=== PATIENT | female | born 1995 | race Caucasian/White ===

== ENCOUNTER 2017-04-10 19:51 | Emergency (ER) | payer SELFPAY ==
[2017-04-10 20:29] VITALS: BP 125/70
--- NOTE | 2017-04-10 20:56 | UC ---
Throat Pain/Nasal Malvin HPI - HPI Summary HPI Summary: 21 year old female presents with complains of fever, ear pain, chills and sore throat. - History of Current Complaint Chief Complaint: UCRespiratory Stated Complaint: FEVER Time Seen by Provider: 04/10/17 20:32 Hx Obtained From: Patient Hx Last Menstrual Period: 1 WEEK AGO Onset/Duration: Sudden Onset Severity: Moderate Pain Scale Used: 0-10 Numeric - 8 Cough: Nonproductive Associated Signs & Symptoms: Positive: Dysphagia - Allergies/Home Medications Allergies/Adverse Reactions: Allergies Allergy/AdvReac Type Severity Reaction Status Date / Time Tomato Allergy Severe Anaphylatic Verified 04/10/17 20:29 Shock Home Medications: Home Medications Dextromethorphan-Phenylephrine [Vicks Dayquil Cold & Flu] 1 cap PO PRN 04/10/17 [History] Konmaaylkajgb-Tnhcogijta-Fejwb [Nyquil Severe Cold/Flu 5-6.25-10-325 mg/15Ml] 1 liq PO PRN 04/10/17 [History] guaiFENesin ER TAB [Mucinex*] 600 mg PO BID PRN 04/10/17 [History Confirmed ] PMH/Surg Hx/FS Hx/Imm Hx Previously Healthy: Yes - Surgical History Surgical History: Yes Surgery Procedure, Year, and Place: SURGERY AN INFANT FOR CLUB FOOT - Family History Known Family History: Positive: None - Social History Alcohol Use: None Substance Use Type: None Smoking Status (MU): Never Smoked Tobacco Review of Systems Constitutional: Negative Skin: Negative Eyes: Negative ENT: Sore Throat, Ear Ache, Nasal Discharge, Sinus Congestion, Sinus Pain/ Tenderness Respiratory: Negative Cardiovascular: Negative Gastrointestinal: Negative Genitourinary: Negative Motor: Negative Neurovascular: Negative Musculoskeletal: Negative Neurological: Negative Psychological: Negative All Other Systems Reviewed And Are Negative: Yes Physical Exam Triage Information Reviewed: Yes Vital Signs: Initial Vital Signs Temp 39.2 C 04/10/17 20:26 Pulse 125 04/10/17 20:26 Resp 16 04/10/17 20:26 BP 125/70 04/10/17 20:26 Pulse Ox 98 04/10/17 20:26 Vital Signs Reviewed: Yes Eye Exam: Normal ENT Exam: Normal ENT: Positive: Pharyngeal erythema, Nasal congestion, Nasal drainage, Tonsillar swelling, Tonsillar exudate, Sinus tenderness Dental Exam: Normal Neck exam: Normal Neck: Positive: 1 Respiratory Exam: Normal Cardiovascular Exam: Normal Abdominal Exam: Normal Musculoskeletal Exam: Normal Neurological Exam: Normal Psychological Exam: Normal Skin Exam: Normal Throat Pain/Nasal Course/Dx - Differential Dx/Diagnosis Provider Diagnoses: pharyngitis. fever. chills. ear pain Discharge - Discharge Plan Condition: Stable Disposition: HOME Prescriptions: Amoxicillin/Clavulanate TAB* [Augmentin TAB 875*] 875 mg PO BID #20 tab Magic M W2 Arun/Maal/Nyst/Lido* 5 ml SWISH SPIT QID PRN #120 ml PRN Reason: Pain Methylprednisolone [Medrol Dosepak 4 MG*] 4 mg PO .SEE CELI INSTRUCTION #21 tab Patient Education Materials: Tonsillitis (ED) Referrals: No Primary Care Phys,NOPCP [Primary Care Provider] -
[2017-04-10] MEDS ORDERED: predniSONE TAB* 20 MG PO ONE (21:22)
[2017-04-10] MEDS ORDERED: Amoxicillin/Clavulanate TAB* 875 MG PO ONE (21:22)
[2017-04-10] MEDS ORDERED: Lidocaine 2% VISCOUS* 15 ML UDC SWISH SPIT ONE (21:23)
[2017-04-10] MEDS ORDERED: Al Hydrox/Mg Hydrox/Simet LIQ* 30 ML UDC PO ONE (21:23)
[2017-04-10] MEDS ORDERED: Neomyc/Polym/HC 1% OTIC SUSP* **OTIC BOTH EARS ONE (21:29)
== END 2017-04-10 22:05 | disposition home or self-care (01) ==
LOC: UCEAST 19:51
DX: J02.9 Acute pharyngitis, unspecified (principal); H92.09 Otalgia, unspecified ear; Z91.018 Allergy to other foods
CPT/HCPCS: 87070; 87502; 87651; 99213; A9270-GY; G0463; J7512

== ENCOUNTER 2018-11-12 15:01 | Emergency (ER) | payer BC ==
[2018-11-12 15:22] VITALS: BP 100/70
--- NOTE | 2018-11-12 16:49 | UC ---
Abdominal Pain Female HPI - HPI Summary HPI Summary: ONSET OF LEFT UPPER QUADRANT/LEFT SIDE PAIN ABOUT 2 WEEKS AGO. NO DISCRETE INJURY/TRAUMA. PAIN HAS WORSENED OVER THE PAST COUPLE OF DAYS. SHE IS NOW NAUSEATED WITH SOME OCCASIONAL LIGHTHEADEDNESS. PAIN IS SHARP/STABBING. APPETITE IS DECREASED. NO CHANGE IN BOWEL HABITS. NO CONSTIPATION/DIARRHEA. - History of Current Complaint Chief Complaint: UCAbdominalPain Stated Complaint: LT SIDE PAIN/BACK Time Seen by Provider: 11/12/18 15:24 Hx Obtained From: Patient, Family/Plant And Maintenance Technician - Hx Last Menstrual Period: 3 weeks ago Onset/Duration: Gradual Onset, Lasting Weeks, Still Present Timing: Constant Severity Initially: Moderate Severity Currently: Moderate Pain Intensity: 7 Pain Scale Used: 0-10 Numeric Location: Discrete At: LUQ Radiates: No Character: Sharp Aggravating Factor(s): Nothing Alleviating Factor(s): Nothing Associated Signs and Symptoms: Positive: Nausea Allergies/Adverse Reactions: Allergies Allergy/AdvReac Type Severity Reaction Status Date / Time tomato Allergy Severe anaphylaxis Verified 11/12/18 15:23 Home Medications: Home Medications NK [No Home Medications Reported] 11/12/18 [History Confirmed 11/12/18] PMH/Surg Hx/FS Hx/Imm Hx Previously Healthy: Yes - Surgical History Surgical History: Yes Surgery Procedure, Year, and Place: SURGERY AN INFANT FOR CLUB FOOT - Family History Known Family History: Positive: None - Social History Alcohol Use: None Substance Use Type: None Smoking Status (MU): Never Smoked Tobacco Review of Systems All Other Systems Reviewed And Are Negative: Yes Constitutional: Positive: Negative Skin: Positive: Negative Respiratory: Positive: Negative Cardiovascular: Positive: Negative Gastrointestinal: Positive: Abdominal Pain, Nausea Genitourinary: Positive: Negative Physical Exam Triage Information Reviewed: Yes Appearance: Well-Nourished, Pain Distress - MODERATE DISCOMFORT. PT SITTING HOLDING HER SIDE Vital Signs: Initial Vital Signs Temp 101 F 11/12/18 15:12 Pulse 91 11/12/18 15:12 Resp 17 11/12/18 15:12 BP 100/70 11/12/18 15:12 Pulse Ox 100 11/12/18 15:12 Vital Signs Reviewed: Yes Eyes: Positive: Conjunctiva Clear ENT: Positive: Hearing grossly normal Neck: Positive: Supple, Nontender, No Lymphadenopathy Respiratory: Positive: No respiratory distress, No accessory muscle use Cardiovascular: Positive: RRR, Pulses Normal Abdomen Description: Positive: Soft, Other: - DIFFUSELY TENDER. WORST LUQ. Negative: CVA Tenderness (R), CVA Tenderness (L), Distended, Guarding Bowel Sounds: Positive: Present Musculoskeletal: Positive: No Edema Neurological: Positive: Alert Psychological: Positive: Age Appropriate Behavior Skin: Negative: Rashes Diagnostics - Laboratory Lab Results: URINE DIP 1.005, 1+ LEUKS. URINE HCG NEG Abd Pain Female Course/Dx - Course Course Of Treatment: PT REQUIRES HIGHER LEVEL OF CARE THAN WHAT IS AVAILABLE IN THE URGENT CARE. TO [facility] BY PRIVATE CAR. PT OFFERED TRANSPORT TO THE ER BY AMBULANCE BUT DECLINES. ADVISED THAT BY NOT TRAVELING IN A MONITORED SETTING SHE COULD BE RISKING WORSENING OF HER CONDITION THAT COULD POSE A THREAT TO HER LIFE, HEALTH AND MEDICAL SAFETY. SHE VERBALIZES UNDERSTANDING AND CONTINUES TO DECLINE AMBULANCE TRANSFER. - Differential Dx/Diagnosis Provider Diagnosis: LUQ abdominal pain Discharge - Sign-Out/Discharge Documenting (check all that apply): Patient Departure All imaging exams completed and their final reports reviewed: No Studies - Discharge Plan Condition: Stable Disposition: TRANS HIGHER [facility] FAC Patient Education Materials: Abdominal Pain (ED) Referrals: Emilia Lemus MD [Primary Care Provider] - If Needed Additional Instructions: GO DIRECTLY TO THE [facility] ER FROM HERE FOR FURTHER EVALUATION. YOU HAVE DECLINED TRANSFER TO THE ER BY AMBULANCE. BE ADVISED THAT BY NOT TRAVELING IN A MONITORED SETTING YOU COULD BE RISKING WORSENING OF YOUR CONDITION THAT COULD POSE A THREAT TO YOUR LIFE, HEALTH AND MEDICAL SAFETY. - Billing Disposition and Condition Condition: STABLE Disposition: Trans Higher Lvl of Care Fac
== END 2018-11-12 16:44 | disposition short-term general hospital (02) ==
LOC: UCEAST 15:01
DX: R10.12 Left upper quadrant pain (principal)
CPT/HCPCS: 81002; 81025; 87086; 99202; G0463

== ENCOUNTER 2018-11-12 17:03 | Emergency (ER) | payer BC ==
[2018-11-12 17:23] LABS: ABS Basophils 0.1 10^3/ul (0-0.2); ABS Eosinophils 0.3 10^3/ul (0-0.6); ABS Monocytes 0.7 10^3/ul (0-0.8); ABS Neutrophils 4.6 10^3/ul (1.5-7.7); Eosinophil % 3.6 %; Hematocrit 43 % (35-47); Hemoglobin 14.6 g/dL (12.0-16.0); Lymphocyte % 26.1 %; Mean Corpuscular HGB Conc 34 g/dL (31-36); Mean Corpuscular Hemoglobin 30 pg (27-31); Mean Corpuscular Volume 89 fL (80-97); Mean Platelet Volume 7.7 fL (7.4-10.4); Platelet Count 239 10^3/uL (150-450); Red Blood Count 4.81 10^6 /uL (3.70-4.87); Red Cell Distribution Width 13 % (10-15); White Blood Count 7.6 10^3/uL (3.5-10.8)
[2018-11-12 17:41] LABS: ALT 11 U/L (7-52); AST 12 U/L (13-39); Albumin 4.6 g/dL (3.2-5.2); Albumin/Globulin Ratio 1.5 (1-3); Alkaline Phosphatase 50 U/L (34-104); Anion Gap 8 mmol/L (2-11); BUN/Creatinine Ratio 15.7 (8-20); Blood Urea Nitrogen 13 mg/dL (6-24); C Reactive Protein 1.02 mg/L (<8.01); CO2 Carbon Dioxide 25 mmol/L (22-32); Calcium 9.5 mg/dL (8.6-10.3); Chloride 105 mmol/L (101-111); EGFR African American 102.2 (>60); EGFR Non-African American 84.5 (>60); Glucose 93 mg/dL (70-100); Sodium 138 mmol/L (135-145); Total Protein 7.6 g/dL (6.4-8.9)
[2018-11-12 17:48] LABS: HCG Pregnancy < 0.60 mIU/mL
[2018-11-12] MEDS ORDERED: Pantoprazole IV* 40 MG IV ONE (18:40)
[2018-11-12] MEDS ORDERED: Ondansetron INJ* 2 MG/ML VIAL IV ONE (18:41)
[2018-11-12] MEDS ORDERED: Ketorolac INJ* 30 MG/ML 1 ML VIAL IV PUSH ONE (20:00)
--- NOTE | 2018-11-12 20:35 | ED ---
GI/ HPI - HPI Summary HPI Summary: 23 year old female presents with left upper quadrant pain flank pain for the past 2 weeks. She admtis to occasional nausea. No vomiting. Denies any urinary symptoms. denies any hematuria. no diarrhea or constipation. Food does not change the pain. He states nothing makes the pain better or worse. Pain is constant. Never had before. No previous surgeries. No medical conditions. No sore throat. Admits occasional shortness of breath but no chest pain. Does have family history of blood clots. - History of Current Complaint Chief Complaint: EDAbdPain Time Seen by Provider: 11/12/18 18:34 Stated Complaint: ABD PAIN PER PT Hx Last Menstrual Period: 3 weeks ago Pain Intensity: 8 - Allergy/Home Medications Allergies/Adverse Reactions: Allergies Allergy/AdvReac Type Severity Reaction Status Date / Time tomato Allergy Severe anaphylaxis Verified 11/12/18 15:23 PMH/Surg Hx/FS Hx/Imm Hx Endocrine/Hematology History: Denies: Hx Anticoagulant Therapy Cardiovascular History: Denies: Hx Myocardial Infarction - Surgical History Surgery Procedure, Year, and Place: SURGERY AN FOR CLUB FOOT Infectious Disease History: No Infectious Disease History: Denies: Traveled Outside the [place] in Last 30 Days - Family History Known Family History: Positive: None - Social History Alcohol Use: None Substance Use Type: Reports: None Smoking Status (MU): Never Smoked Tobacco Review of Systems Negative: Fever Negative: Chest Pain Negative: Shortness Of Breath Positive: Abdominal Pain, Nausea. Negative: Vomiting, Diarrhea All Other Systems Reviewed And Are Negative: Yes Physical Exam Triage Information Reviewed: Yes Vital Signs On Initial Exam: Initial Vitals Temp Pulse Resp BP Pulse Ox 99.5 F 86 12 127/79 94 11/12/18 17:03 11/12/18 17:03 11/12/18 17:03 11/12/18 17:03 11/12/18 17:03 Vital Signs Reviewed: Yes Appearance: Positive: Well-Appearing Skin: Positive: Warm, Dry Head/Face: Positive: Normal Head/Face Inspection Eyes: Positive: Normal, Conjunctiva Clear ENT: Positive: Pharynx normal Respiratory/Lung Sounds: Positive: Clear to Auscultation, Breath Sounds Present Cardiovascular: Positive: Normal, RRR Abdomen Description: Positive: Soft, CVA Tenderness (L), Other: - tenderness in LUQ Bowel Sounds: Positive: Present Musculoskeletal: Positive: Normal Neurological: Positive: Normal Psychiatric: Positive: Normal Diagnostics - Vital Signs Vital Signs Temp Pulse Resp BP Pulse Ox 11/12/18 18:44 81 102/65 100 11/12/18 18:16 73 99 11/12/18 18:15 108/72 11/12/18 17:03 99.5 F 86 12 127/79 94 - Laboratory Lab Results: Lab Results 11/12/18 11/12/18 11/12/18 Range/Units 17:17 17:17 17:17 WBC 7.6 (3.5-10.8) 10^3/uL RBC 4.81 (3.70-4.87) 10^6 /uL Hgb 14.6 (12.0-16.0) g/dL Hct 43 (35-47) % MCV 89 (80-97) fL MCH 30 (27-31) pg MCHC 34 (31-36) g/dL RDW 13 (10-15) % Plt Count 239 (150-450) 10^3/uL MPV 7.7 (7.4-10.4) fL Neut % (Auto) 60.2 % Lymph % (Auto) 26.1 % Bergen % (Auto) 8.9 % Eos % (Auto) 3.6 % Baso % (Auto) 1.2 % Absolute Neuts (auto) 4.6 (1.5-7.7) 10^3/ul Absolute Lymphs (auto) 2.0 (1.0-4.8) 10^3/ul Absolute Monos (auto) 0.7 (0-0.8) 10^3/ul Absolute Eos (auto) 0.3 (0-0.6) 10^3/ul Absolute Basos (auto) 0.1 (0-0.2) 10^3/ul Absolute Nucleated RBC 0.0 10^3/ul Nucleated RBC % 0.0 D-Dimer, Quantitative (Less Than 230) ng/mL Sodium 138 (135-145) mmol/L Potassium 4.0 (3.5-5.0) mmol/L Chloride 105 (101-111) mmol/L Carbon Dioxide 25 (22-32) mmol/L Anion Gap 8 (2-11) mmol/L BUN 13 (6-24) mg/dL Creatinine 0.83 (0.51-0.95) mg/dL Est GFR ( Amer) 102.2 (>60) Est GFR (Non-Af Amer) 84.5 (>60) BUN/Creatinine Ratio 15.7 (8-20) Glucose 93 (70-100) mg/dL Lactic Acid 0.9 (0.5-2.0) mmol/L Calcium 9.5 (8.6-10.3) mg/dL Total Bilirubin 0.70 (0.2-1.0) mg/dL AST 12 L (13-39) U/L ALT 11 (7-52) U/L Alkaline Phosphatase 50 (34-104) U/L C-Reactive Protein 1.02 (<8.01) mg/L Total Protein 7.6 (6.4-8.9) g/dL Albumin 4.6 (3.2-5.2) g/dL Globulin 3.0 (2-4) g/dL Albumin/Globulin Ratio 1.5 (1-3) Lipase 31 (11.0-82.0) U/L Beta HCG, Quant < 0.60 mIU/mL Monoscreen Negative (Negative) 11/12/18 Range/Units 19:01 WBC (3.5-10.8) 10^3/uL RBC (3.70-4.87) 10^6 /uL Hgb (12.0-16.0) g/dL Hct (35-47) % MCV (80-97) fL MCH (27-31) pg MCHC (31-36) g/dL RDW (10-15) % Plt Count (150-450) 10^3/uL MPV (7.4-10.4) fL Neut % (Auto) % Lymph % (Auto) % Bergen % (Auto) % Eos % (Auto) % Baso % (Auto) % Absolute Neuts (auto) (1.5-7.7) 10^3/ul Absolute Lymphs (auto) (1.0-4.8) 10^3/ul Absolute Monos (auto) (0-0.8) 10^3/ul Absolute Eos (auto) (0-0.6) 10^3/ul Absolute Basos (auto) (0-0.2) 10^3/ul Absolute Nucleated RBC 10^3/ul Nucleated RBC % D-Dimer, Quantitative < 200 (Less Than 230) ng/mL Sodium (135-145) mmol/L Potassium (3.5-5.0) mmol/L Chloride (101-111) mmol/L Carbon Dioxide (22-32) mmol/L Anion Gap (2-11) mmol/L BUN (6-24) mg/dL Creatinine (0.51-0.95) mg/dL Est GFR ( Amer) (>60) Est GFR (Non-Af Amer) (>60) BUN/Creatinine Ratio (8-20) Glucose (70-100) mg/dL Lactic Acid (0.5-2.0) mmol/L Calcium (8.6-10.3) mg/dL Total Bilirubin (0.2-1.0) mg/dL AST (13-39) U/L ALT (7-52) U/L Alkaline Phosphatase (34-104) U/L C-Reactive Protein (<8.01) mg/L Total Protein (6.4-8.9) g/dL Albumin (3.2-5.2) g/dL Globulin (2-4) g/dL Albumin/Globulin Ratio (1-3) Lipase (11.0-82.0) U/L Beta HCG, Quant mIU/mL Monoscreen (Negative) Result Diagrams: 11/12/18 17:17 11/12/18 17:17 Lab Statement: Any lab studies that have been ordered have been reviewed, and results considered in the medical decision making process. - CT abd CT Interpretation Completed By: Radiologist Summary of CT Findings: IMPRESSION: 1. There may be a 4 mm calculus in the terminal left ureter without obstructive. uropathy. 2. There is trace free fluid in the posterior pelvic cul-de-sac, cannot exclude. ovarian cyst rupture. Re-Evaluation - Re-Evaluation First Eval Comment: pain is the same Second Eval Re-Evaluation Time: 23:20 Change: Improved Comment: feeling better GIGU Course/Dx - Course Course Of Treatment: 23 year old female presents with left upper quadrant pain flank pain for the past 2 weeks. She admtis to occasional nausea. No vomiting. Denies any urinary symptoms. denies any hematuria. no diarrhea or constipation. Food does not change the pain. He states nothing makes the pain better or worse. Pain is constant. Never had before. No previous surgeries. No medical conditions. No sore throat. Admits occasional shortness of breath but no chest pain. Does have family history of blood clots. On exam tenderness in left upper quadrant and left flank. wbc normal. CRP normal. D- dimer negative. CT shows a 4 mm ureteral stone. Gave patient Toradol and morphine with some improvement. Will place patient on Flomax and pain medication (tramadol as percocet makes patient feel weird). Told to follow with urology. Patient understands agrees with plan. - Diagnoses Differential Diagnoses - Female: Gastritis, Urinary Tract Infection, Ureteral Calculi Provider Diagnoses: Ureteral stone Discharge - Sign-Out/Discharge Documenting (check all that apply): Patient Departure Patient Received Moderate/Deep Sedation with Procedure: No - Discharge Plan Condition: Good Disposition: HOME Prescriptions: Amoxicillin PO (*) [Amoxicillin 500 MG CAP*] 500 mg PO Q12H #9 cap Ondansetron TAB* [Zofran 4 MG Tab*] 4 mg PO Q6H PRN #12 tab PRN Reason: Nausea Tamsulosin CAP* [Flomax CAP*] 0.4 mg PO DAILY #10 cap traMADol TAB* [Ultram*] 50 mg PO Q6HR PRN #16 tab MDD 4 PRN Reason: Pain - Severe Patient Education Materials: Ureteral Stones (ED) Referrals: Emilia Lemus MD [Primary Care Provider] - Vince Mast MD [Medical Doctor] - Additional Instructions: Take ibuprofen every 6 hours and percocet as needed every 6 hours Take Zofran every 6 hours for nausea as needed Take Flomax daily starting tomorrow, first dose given in ED until stone expelled , make sure stand up slowly Follow up with urology, call office tomorrow for appointment Strain urine until collect stone Return to ED if unable to manage pain at home, develop fever, or any new or worsening symptoms - Billing Disposition and Condition Condition: GOOD Disposition: Home
[2018-11-12] MEDS ORDERED: NS 0.9% 1000 ML** 1,000 ML IV ONE (21:27)
[2018-11-12] MEDS ORDERED: Tamsulosin CAP* 0.4 MG PO ONE (21:27)
[2018-11-12] MEDS ORDERED: Morphine 4 MG/ML VIAL (1 ml) 4 MG/ML VIAL IV ONE (21:27)
[2018-11-12 22:13] LABS: Urine Appearance Cloudy; Urine Bacteria Absent (Absent); Urine Bilirubin Negative (Negative); Urine Blood Negative (Negative); Urine Color Yellow; Urine Glucose Negative (Negative); Urine Ketones 1+ (Negative); Urine Nitrite Negative (Negative); Urine Protein Negative (Negative); Urine Red Blood Cell Trace(0-2/hpf) (Absent); Urine Specific Gravity 1.018 (1.010-1.030); Urine Squamous Epithelial Cell Present (Absent); Urine Urobilinogen Negative (Negative); Urine White Blood Cell 2+(11-20/hpf) (Absent)
[2018-11-12] MEDS ORDERED: Amoxicillin PO (*) 250 MG CAP PO ONE (23:10)
[2018-11-13 00:56] VITALS: BP 108/70
== END 2018-11-13 00:54 | disposition home or self-care (01) ==
LOC: ED 17:03
DX: N20.1 Calculus of ureter (principal)
CPT/HCPCS: 36415; 74176; 80053; 81003; 81015; 83605; 83690; 84702; 85025; 85379; 86140; 86308; 96361; 96374; 96375; 99283; A9270-GY; J1885; J2270; J2405

== ENCOUNTER 2018-11-13 18:37 | Emergency (ER) | payer BC ==
[2018-11-13] MEDS ORDERED: diPHENhydraMINE IV* 50 MG/ML 1 ml VIAL (BENADRYL) IV ONE (19:22)
[2018-11-13] MEDS ORDERED: NS 0.9% 1000 ML** 1,000 ML IV ONE (19:23)
[2018-11-13] MEDS ORDERED: diPHENhydraMINE PO* 50 MG PO ONE (19:39)
[2018-11-13 19:42] LABS: ABS Basophils 0.1 10^3/ul (0-0.2); ABS Eosinophils 0.3 10^3/ul (0-0.6); ABS Lymphocytes 1.5 10^3/ul (1.0-4.8); ABS Monocytes 0.7 10^3/ul (0-0.8); ABS Neutrophils 5.2 10^3/ul (1.5-7.7); Eosinophil % 3.4 %; Hematocrit 39 % (35-47); Hemoglobin 13.3 g/dL (12.0-16.0); Lymphocyte % 19.3 %; Mean Corpuscular HGB Conc 34 g/dL (31-36); Mean Corpuscular Hemoglobin 30 pg (27-31); Mean Corpuscular Volume 88 fL (80-97); Mean Platelet Volume 7.7 fL (7.4-10.4); Nucleated Red Blood Cells % 0.1; Platelet Count 212 10^3/uL (150-450); Red Blood Count 4.42 10^6 /uL (3.70-4.87); Red Cell Distribution Width 13 % (10-15); White Blood Count 7.8 10^3/uL (3.5-10.8)
--- NOTE | 2018-11-13 19:44 | ED ---
Lower Extremity - HPI Summary HPI Summary: Pt is a 23 y/o F presenting to the ED with a chief complaint of lower extremity issues. She states she was here on 11/12 where she was dxed with a L-sided kidney stone, and she was given Flomax to take at home. She took the Flomax, but she has since experienced shaking in her bilateral lower legs. She also reports nausea, lightheadedness, and slight chest pain. The pain from the kidney stone is still present on her L flank. She was also given Reglan which she did not take. - History of Current Complaint Chief Complaint: EDGeneral Stated Complaint: CHEST AND ABD PAIN PER EMS Time Seen by Provider: 11/13/18 19:01 Hx Obtained From: Patient Hx Last Menstrual Period: 3 weeks ago Mechanism Of Injury: Unknown Onset of Pain: Hours Onset/Duration: Hours Severity Initially: Moderate Severity Currently: Severe Pain Intensity: 9 Pain Scale Used: 0-10 Numeric Timing: Constant, Lasting Hours Location: Is Diffuse Associated Signs And Symptoms: Positive: Abdominal Pain - L side flank from kidney stone, Other - nausea, chest pain, lightheadedness Aggravating Factor(s): Nothing Alleviating Factor(s): Nothing Able to Bear Weight: Yes - Allergies/Home Medications Allergies/Adverse Reactions: Allergies Allergy/AdvReac Type Severity Reaction Status Date / Time tomato Allergy Severe anaphylaxis Verified 11/12/18 15:23 PMH/Surg Hx/FS Hx/Imm Hx Previously Healthy: Yes Endocrine/Hematology History: Denies: Hx Anticoagulant Therapy Cardiovascular History: Denies: Hx Myocardial Infarction - Surgical History Surgery Procedure, Year, and Place: SURGERY AN FOR CLUB FOOT Infectious Disease History: No Infectious Disease History: Denies: Traveled Outside the [place] in Last 30 Days - Family History Known Family History: Negative: Hypertension, Diabetes - Social History Alcohol Use: None Hx Substance Use: No Substance Use Type: Reports: None Hx Tobacco Use: No Smoking Status (MU): Never Smoked Tobacco Review of Systems Positive: Chest Pain Positive: Abdominal Pain - L sided flank from kidney stone, Nausea Positive: Other - bilat LE shaking Neurological: Other - lightheadedness All Other Systems Reviewed And Are Negative: Yes Physical Exam - Summary Physical Exam Summary: Constitutional: Well-developed, Well-nourished, Alert. (-) Distressed Skin: Warm, Dry HENT: Normocephalic; Atraumatic Eyes: Conjunctiva normal Neck: Musculoskeletal ROM normal neck. (-) JVD, (-) Stridor, (-) Tracheal deviation Cardio: Rhythm regular, rate normal, Heart sounds normal; Intact distal pulses; The pedal pulses are 2+ and symmetric. Radial pulses are 2+ and symmetric. (-) Murmur Pulmonary/Chest wall: Effort normal. (-) Respiratory distress, (-) Wheezes, (-) Rales Abd: Soft, (-) tenderness, (-) Distension, (-) Guarding, (-) Rebound Musculoskeletal: (-) Edema, bilateral LE twitching Lymph: (-) Cervical adenopathy Neuro: Alert, Oriented x3 Psych: Mood and affect anxious Triage Information Reviewed: Yes Vital Signs On Initial Exam: Initial Vitals Temp Pulse Resp BP Pulse Ox 100.9 F 109 22 115/73 94 11/13/18 18:45 11/13/18 18:45 11/13/18 18:45 11/13/18 18:45 11/13/18 18:45 Vital Signs Reviewed: Yes Diagnostics - Vital Signs Vital Signs Temp Pulse Resp BP Pulse Ox 11/13/18 18:45 100.9 F 109 22 115/73 94 - Laboratory Result Diagrams: 11/13/18 19:35 11/13/18 19:35 Lab Statement: Any lab studies that have been ordered have been reviewed, and results considered in the medical decision making process. - EKG 1907 Cardiac Rate: Tachycardia - 104bpm EKG Rhythm: Sinus Tachycardia ST Segment: Normal Ectopy: None Summary of EKG Findings: EKG at 190 shows sinus tachycardia at 104bpm with normal CO, normal QRS, normal QTc, R axis deviation, normal ST, normal T-waves, non-specific EKG. Lower Extremity Course/Dx - Course Course Of Treatment: Pt is a 23 y/o F presenting to the ED with a chief complaint of lower extremity issues. She was here on 11/12 where she was dxed with a L-sided kidney stone and given Flomax to take at home. She took the Flomax, and has since experienced shaking in her bilateral lower legs. She also reports nausea, lightheadedness, and slight chest pain, as well as the L-sided flank pain from her kidney stone. On exam, the pt is anxious and her bilateral LE are twitching. Her PE is otherwise nml. EKG at 1907 shows sinus tachycardia at 104bpm with normal CO, normal QRS, normal QTc, R axis deviation, normal ST, normal T-waves, non-specific EKG. Pt's lab results are WNL. In the ED course, she was given Benadryl PO for her shaking, as well as fluids to hydrate her. The pt reports feeling better, and as of 2105, she went to the bathroom and is stable. She will be d/c'ed with dx of medication side effect and instructions to f/u with her PCP. She is stable and agreeable with this plan. - Diagnoses Provider Diagnoses: Medication side effect Discharge - Sign-Out/Discharge Documenting (check all that apply): Patient Departure Patient Received Moderate/Deep Sedation with Procedure: No - Discharge Plan Condition: Stable Disposition: HOME Patient Education Materials: Extrapyramidal Symptoms (ED) Print Language: MONGOLIAN Referrals: Emilia Lemus MD [Primary Care Provider] - Additional Instructions: Take Benadryl every 6 hours as needed. - Billing Disposition and Condition Condition: STABLE Disposition: Home - Attestation Statements Document Initiated by Scribe: Yes Documenting Scribe: Judi Cates Provider For Whom Blairibrivera is Documenting (Include Credential): Radha Morgan MD. Scribe Attestation: Judi Fisher, dulce mariaed for Radha Gomes MD. on 11/15/18 at 0607. Scribe Documentation Reviewed: Yes Provider Attestation: The documentation as recorded by the scribeJudi accurately reflects the service I personally performed and the decisions made by me, Radha Gomes MD. Status of Scribe Document: Viewed
[2018-11-13 20:00] LABS: Albumin 4.2 g/dL (3.2-5.2); Albumin/Globulin Ratio 1.6 (1-3); Calcium 9.3 mg/dL (8.6-10.3); EGFR African American 105.1 (>60); EGFR Non-African American 86.9 (>60); Globulin 2.6 g/dL (2-4); Potassium 3.8 mmol/L (3.5-5.0); Total Bilirubin 0.4 mg/dL (0.2-1.0); Total Protein 6.8 g/dL (6.4-8.9)
[2018-11-13 21:23] VITALS: BP 104/70
== END 2018-11-13 21:22 | disposition home or self-care (01) ==
LOC: ED 18:37
DX: G25.1 Drug-induced tremor (principal); T44.6X5A Adverse effect of alpha-adrenoreceptor antagonists, initial encounter; Y92.9 Unspecified place or not applicable
CPT/HCPCS: 36415; 80053; 85025; 93005; 96374; 99282; A9270-GY; J1200